=== PATIENT | female | born 1930 | race Caucasian/White ===

== ENCOUNTER 2017-04-18 01:15 | Inpatient (IN) | payer MEDICARE, MEDICAID ==
[~2017-04-18] VITALS: Ht 154.9 cm; Wt 54.0 kg
--- NOTE | 2017-04-18 01:20 | NUR ---
PT BIB RA TO ER BED 7, PT BIB [facility] C/O N/V/D X 4 HOURS. PT PLACED IN GOWN AND PATTERN CLERK. VSS/RESP EVEN UNLABORED/NAD NOTED/SKIN WARM AND DRY/AOX4. PT IS ACTIVELY HAVING DIARRHEA, AWARE.
[2017-04-18] MEDS ORDERED: ONDANSETRON HCL/PF 4 MG/2 ML VIAL ONE (01:59)
[2017-04-18] MEDS ORDERED: HYDROMORPHONE INJ 2 MG/ML DISP.SYRIN IV ONE (02:00)
[2017-04-18] MEDS ORDERED: IV NS 0.9% 1,000 ML BAG IV ONE (02:00)
[2017-04-18] MEDS ORDERED: HYDROMORPHONE INJ 2 MG/ML DISP.SYRIN ONE (02:00)
[2017-04-18] MEDS ORDERED: ONDANSETRON HCL/PF 4 MG/2 ML VIAL IVP ONE (02:00)
--- NOTE | 2017-04-18 02:07 | NUR ---
18G IV TO LAC USING ASEPTIC TECH, BLOOD HANDED OVER TO LAB AT BEDSIDE. IV FLUSHES EASILY WITH NS FLUSH.
[2017-04-18 02:15] LABS: BASOPHILS % (AUTO) 0.3 % (0.0-2.0); EOSINOPHILS # (AUTO) 0.1 /CMM (0.0-0.7); EOSINOPHILS % (AUTO) 0.8 % (0.0-6.0); HEMATOCRIT 42 % (33-45); HEMOGLOBIN 13.4 g/dL (11.5-14.8); LYMPHOCYTES # (AUTO) 2.2 /CMM (0.8-4.8); LYMPHOCYTES % (AUTO) 22.3 % (20.0-44.0); MEAN CORPUSCULAR HEMOGLOBIN 29 PG (26.0-33.0); MEAN CORPUSCULAR HGB CONC 32 g/dl (31.0-36.0); MEAN CORPUSCULAR VOLUME 89 fL (82-100); MONOCYTES # (AUTO) 0.3 /CMM (0.1-1.30); MONOCYTES % (AUTO) 3.4 % (2.0-12.0); NEUTROPHILS # (AUTO) 7.1 /CMM (1.8-8.9); NEUTROPHILS % (AUTO) 73.2 % (43.0-81.0); PLATELET COUNT (AUTO) 213 /CMM (150-450); RDW COEFFICIENT OF VARIATION 12.5 (11.5-15.0); RED BLOOD CELL COUNT(AUTO) 4.66 MIL/uL (4.0-5.2); WHITE BLOOD COUNT (AUTO) 9.6 K/uL (4.3-11.0)
[2017-04-18 02:29] LABS: INR 0.94 (0.87-1.13); PROTHROMBIN TIME 9.8 SECS (9.5-12.7)
[2017-04-18 02:30] LABS: ALANINE AMINOTRANSFERASE 19 U/L (12-78); ALBUMIN 4.2 g/dL (3.4-5.0); ALKALINE PHOSPHATASE 88 U/L (46-116); ASPARTATE AMINOTRANSFERASE 16 U/L (15-37); BILIRUBIN,DIRECT 0.1 mg/dL (0.0-0.2); BILIRUBIN,TOTAL 0.5 mg/dL (0.2-1.0); CARBON DIOXIDE 30 mmol/L (21-32); CHLORIDE 102 mmol/L (98-107); CREATININE 1.1 mg/dL (0.6-1.3); GLUCOSE 273 mg/dL (74-106); LIPASE 215 U/L (73-393); POTASSIUM 4.3 mmol/L (3.5-5.1); SODIUM SERUM 141 mmol/L (136-145); TOTAL PROTEIN, SERUM 7.8 g/dL (6.4-8.2); UREA NITROGEN, BLOOD 18 mg/dL (7-18)
[2017-04-18 02:33] LABS: TROPONIN I < 0.017 ng/mL (0.00-0.056)
[2017-04-18] MEDS ORDERED: IOHEXOL-350 100 ML VIAL IV ONE (03:00)
[2017-04-18] MEDS ORDERED: IV NS 0.9% 250 ML IV ONE (03:00)
--- NOTE | 2017-04-18 03:03 | NUR ---
PT TO CT VIA STRETCHER, VSS.
--- NOTE | 2017-04-18 04:10 | NUR ---
tele [phone]
--- NOTE | 2017-04-18 04:10 | NUR ---
REPORT GIVEN TO MALENA FOR UBALDO.
[2017-04-18] MEDS ORDERED: LEVOFLOXACIN 750 MG /D5W 150ML 150 ML IV ONE (04:17)
--- NOTE | 2017-04-18 04:20 | NUR ---
PT TRANSPORTED TO [place] [address]-2 VIA STRETCHER WITH RN, ACLS PROTOCOL.
[2017-04-18] MEDS ORDERED: ACETAMINOPHEN 325 MG TABLET PO PRN (04:30)
[2017-04-18] MEDS ORDERED: LEVOFLOXACIN 750 MG /D5W 150ML PIGGYBACK IV ONE (04:30)
[2017-04-18] MEDS ORDERED: IV D5/ 0.9% NACL 1,000 ML IV PRN (04:30)
[2017-04-18] MEDS ORDERED: HYDROMORPHONE INJ 2 MG/ML DISP.SYRIN IV PRN (04:30)
[2017-04-18] MEDS ORDERED: ONDANSETRON HCL/PF 4 MG/2 ML VIAL IVP PRN (04:30)
--- NOTE | 2017-04-18 04:30 | NUR ---
RN ADMITTING NOTES RECEIVED REPORT FROM FLIGHT ATTENDANT [employer] SERVICESDENY. Pt ARRIVED VIA ER [facility], WAS ABLE TO WALK FROM [facility] TO ROOM 320 BED 2 SAFELY WITH ASSISTANCE. NO S/S OF ACUTE DISTRESS OR SOB NOTED. NO C/O OF PAIN AT THIS TIME. Pt IS A/OX4, SWEDISH SPEAKING ONLY. ACCOMPANIED BY FAMILY AT BEDSIDE. IV ACCESS ON LAC #18G. ON TELE. SAFETY MEASURES IN PLACE. BED LOW, LOCKED, HOB ELEVATED, SIDE RAILS UP, CALL LIGHT AND BEDSIDE TABLE WITHIN REACH. WILL CONTINUE TO MONITOR Pt THROUGHOUT THE NIGHT FOR SAFETY.
--- NOTE | 2017-04-18 06:30 | NUR ---
RN NOTES Pt & FAMILY REFUSING NGTUBE INSERTION.
--- NOTE | 2017-04-18 06:35 | NUR ---
RN CLOSING NOTES NO SIGNIFICANT CHANGES IN Pt's CONDITION. Pt REMAINS STABLE AT THIS TIME. NO S/S OF ACUTE DISTRESS OR SOB NOTED. NO MORE C/O ABD'L PAIN OR N/V/DIARRHEA. ALL NEEDS MET AND ATTENDED TO. SAFETY MEASURES IN PLACE. WILL ENDORSE TO DAYSHIFT RN FOR Pt's UBALDO. TELE READING SR 74 WITH ARRHYTHMIAS
[2017-04-18] MEDS ORDERED: PANTOPRAZOLE 40 MG TABLET.DR PO SCH (07:30)
--- NOTE | 2017-04-18 07:30 | NUR ---
RN OPENING NOTES RECEIVED PATIENT IN BED RESTING, DAUGHTER AT BEDSIDE, A/OX3, NIGERIAN SPEAKING. NO ACUTE DISTRESS, NO SOB NOTED. DENIES ABDOMINAL PAIN OR DISCOMFORT. TELE SR 79. ON ROOM AIR WITH 98% SAT. IV SITE INTACT AND PATENT. PATIENT NPO. PATIENT'S DAUGHTER REFUSED INSERTION OF NGTUBE, WILL NOTIFY MD. BED IN LOCKED, LOW POSITION, SIDERAILS UPX2, CALL LIGHT WITHIN REACH. WILL CONTINUE TO MONITOR ACCORDINGLY.
[2017-04-18 08:00] VITALS: BP 120/61
--- NOTE | 2017-04-18 09:00 | NUR ---
RN NOTES DR HOFFMAN ON BEDSIDE. PER MD, ORDER REGULAR DIET. WILL CONTINUE TO MONIOTR ACCORDINGLY.
[2017-04-18] MEDS ORDERED: PIPERACILLIN /TAZOBACTAM 2.25 G in IV D5W 50 ML IV SCH (10:00)
[2017-04-18] MEDS ORDERED: METR500T PO (10:56)
[2017-04-18] MEDS ORDERED: CIPR-263 PO (10:56)
[2017-04-18 14:00] VITALS: BP 116/75
--- NOTE | 2017-04-18 14:25 | NUR ---
FIRST HELPER NOTES DISCHARGE PATIENT IN STABLE CONDITION ACCOMPANIED BY DAUGHTER AND RN, LEFT VIA PRIVATE CAR. DISCHARGE INSTRUCTION/EXITCARE DONE, PATIENT AND PATIENT'S DAUGHTER VERBALIZED UNDERSTANDING, DISCHARGE PAPERWORK GIVEN. ALL BELONGINGS GIVEN BACK TO PATIENT, BELONGINGS FORM SIGNED. D/C IV SITE, PRESSURE APPLIED, NO BLEEDING, NO COMPLICATIONS NOTED.
--- NOTE | 2017-04-18 15:00 | NUR ---
patient speaks Georgian. She is alert and pleasant. She lives at home with son, has [facility] caregiver 5hrs/day. She ambulates with assistive device, has adequate DME: walker, shower chair and grab bars. Patient discharged home today, no dc needs identified. Addendum: 04/18/17 at 7 by RITCHIE HITCHCOCK RN Amended: Links added.
== END 2017-04-18 14:26 | disposition home or self-care (01) | DRG 392 ==
LOC: ER 01:17 → TELE 04:16 → MED 09:22
PROVIDERS: ADMIT Internal Medicine; ATTEND Internal Medicine
DX: A09 Infectious gastroenteritis and colitis, unspecified (principal); E11.9 Type 2 diabetes mellitus without complications; I10 Essential (primary) hypertension
CPT/HCPCS: 36415; 80048-TC; 80076-TC; 82962-TC; 83690-TC; 84484-TC; 85025-TC; 85730-TC; 87040-TC; 87081-TC; A4606; J1170; J1956; J2405; J2543; J7030; J7042; J7050; J7060; Q9967; Z7610